=== PATIENT | male | born 1960 | race Caucasian/White ===

== ENCOUNTER 2017-07-12 21:00 | Outpatient (CLI) | payer OTHER | END 2017-07-13 07:14 | disposition home or self-care (01) | LOC: SLEEP 21:00 → EDBD 07-21 21:00 | PROVIDERS: ATTEND Nurse Practitioner Family | DX: G47.33 Obstructive sleep apnea (adult) (pediatric) (principal); G47.10 Hypersomnia, unspecified; G47.50 Parasomnia, unspecified; E66.9 Obesity, unspecified | CPT/HCPCS: 95811 ==

== ENCOUNTER 2017-10-27 09:44 | Emergency (ER) | payer OTHER ==
[~2017-10-27] VITALS: Ht 180.3 cm; Wt 113.4 kg
[2017-10-27] MEDS ORDERED: LORazepam INJ 2 MG/ML (ATIVAN) VIAL IVP ONE (10:15)
[2017-10-27] MEDS ORDERED: fentaNYL INJECTION 100 MCG/2 ML AMP IVP ONE (10:15)
--- NOTE | 2017-10-27 10:56 | Diagnostic Imaging Report ---
EXAMINATION: 3 views of the right shoulder. INDICATION: Injury. FINDINGS: There is no fracture, dislocation or radiopaque foreign body. The acromioclavicular joint demonstrates mild hypertrophy and very minimal inferior osteophytes. Subchondral sclerosis is seen. The glenohumeral joint appear unremarkable. IMPRESSION: Mild AC joint degenerative change. Dictated by: Dictated on workstation # [id number]
--- NOTE | 2017-10-27 12:33 | Diagnostic Imaging Report ---
EXAMINATION: 2 views of the skull. INDICATION: Screening for metallic foreign body in the orbits before MRI. FINDINGS: The orbits and the intracranial cavity demonstrate no radiopaque foreign body. IMPRESSION: No radiopaque foreign body in the orbits or intracranially. Dictated by: Dictated on workstation # [id number]
--- NOTE | 2017-10-27 13:10 | Diagnostic Imaging Report ---
PROCEDURE: MRI right joint upper extremity without contrast. TECHNIQUE: Multiplanar, multisequence MR imaging of the right shoulder was performed without contrast. COMPARISON: Right shoulder radiographs of 10/27/2017. INDICATION: Right shoulder pain after injury. FINDINGS: Rotator cuff: There is an acute full-thickness tear of the superior one-half of the subscapularis with a large amount of edema within the muscle belly and surrounding the torn fibers. The torn fibers are retracted to the mid humeral head. There is also a full-thickness tear of the anterior one-half of the supraspinatus with the torn fibers retracted to the mid humeral head as well. Posterior infraspinatus has tendinopathy but remains intact. The infraspinatus and teres minor are normal. Glenoid labrum: Heterogeneous signal within the anterior inferior labrum with potential radial type tear in the labrum at the chondral labral junction. Long head of biceps: Long head of biceps is normally positioned within the bicipital groove. The intracapsular segment is intact. Bones and cartilage: No fracture or bone contusion. No glenohumeral chondromalacia. The acromioclavicular joint is normal in alignment without significant degenerative change. Soft tissues: No glenohumeral joint effusion. No MRI findings to suggest adhesive capsulitis. Extensive edema and/or hemorrhage within the subacromial and subdeltoid space. There is also a large amount of edema in the subcoracoid space from the subscapularis tear. IMPRESSION: 1. Acute anterior rotator cuff tear with complete tears of the superior one-half of the subscapularis and anterior one-half of the supraspinatus. Torn fibers are retracted to the mid humeral head and there is a large amount of edema and/or hemorrhage in the subcoracoid and subacromial space from acute injury. 2. Possible nondisplaced tear of the anterior inferior labrum. This can be evaluated in the future with an MR arthrogram once the acute injury has resolved. 3. No fracture or bone contusion. Dictated by: Dictated on workstation # [id number]
[2017-10-27] MEDS ORDERED: HYDR-3812 PO (13:26)
--- NOTE | 2017-10-27 13:26 | ED Fall/Injury ---
General Chief Complaint: Upper Extremity Stated Complaint: SHOULDER PAIN Nursing Triage Note: ARRIVED VIA AMB TO ROOM 07. 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 HE THEN FELL OFF THE GATE LANDING ON HIS LEFT FOREARM AND HIP. COMPLAINS OF LEFT SHOULDER PAIN AND HIP PAIN. Source: patient Exam Limitations: no limitations History of Present Illness Time seen by provider: 10:10 Initial Comments This 57-year-old gentleman presents to emergency room with right upper extremity injury. 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 He jumped onto the fence approximately 5 foot up to evade the animals and fell off landing on his right shoulder and hip. He now has pain and significant range of motion deficit in the right shoulder. His right hip also hurts but he is able to bear weight on it and walk without much difficulty. He denies any other injury. He did not strike his head or neck. Allergies and Home Medications Allergies Coded Allergies: No Known Drug Allergies (Unverified , 10/27/17) Home Medications Hydrocodone/Acetaminophen 1 Each Tablet, 1 EACH PO Q4H PRN for PAIN, #20 Prescribed by: KEVEN CLARK on 10/27/17 1326 Constitutional: no symptoms reported, see HPI Eyes: No Symptoms Reported Ears, Nose, Mouth, Throat: no symptoms reported Respiratory: no symptoms reported Cardiovascular: no symptoms reported Gastrointestinal: no symptoms reported Genitourinary: no symptoms reported Musculoskeletal: see HPI Skin: no symptoms reported Psychiatric/Neurological: No Symptoms Reported Past Neujuti-Zashpx-Piupmr Hx Patient Social History Alcohol Use: Rarely Uses Recreational Drug Use: No Smoking Status: Never a Smoker Recent Foreign Travel: No Contact w/Someone Who Travel: No Recent Infectious Disease Expo: No Recent Hopitalizations: No Seasonal Allergies Seasonal Allergies: No Surgeries History of Surgeries: No Respiratory History of Respiratory Disorde: No Cardiovascular History of Cardiac Disorders: Yes Cardiac Disorders: High Cholesterol, Hypertension Neurological History of Neurological Disord: No Genitourinary History of Genitourinary Disor: No Gastrointestinal History of Gastrointestinal Di: No Musculoskeletal History of Musculoskeletal Dis: No Endocrine History of Endocrine Disorders: No HEENT History of HEENT Disorders: No Cancer History of Cancer: No Psychosocial History of Psychiatric Problem: No Integumentary History of Skin or Integumenta: No Physical Exam Vital Signs Vital Sign - Last 12Hours 10/27/17 09:50 Temp 98.0 Pulse 78 Resp 18 B/P (MAP) 139/113 (122) Pulse Ox 98 Capillary Refill : Less Than 3 Seconds General Appearance: WD/WN, mild distress HEENT: normal ENT inspection Neck: normal inspection Back: normal inspection, no vertebral tenderness Extremities: normal inspection, other (movement of the right forearm, wrist, and elbow induces pain in the shoulder. Range of motion is severely limited in the shoulder. He cannot adduct his shoulder more than about 15 actively. 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, no motor/sensory deficits, alert, normal mood/affect, oriented x 3 Skin: normal color, warm/dry [place] Coma Score Best Eye Response: (4) Open Spontaneously Best Verbal Response: (5) Oriented Best Motor Response: (6) Obeys Commands [place] Total: 15 Progress/Results/Core Measures Results/Orders My Orders Orders - KEVEN ABEBE MD Lorazepam Injection (Ativan Injection) (10/27/17 10:15) Fentanyl Injection (Sublimaze Injection (10/27/17 10:15) Shoulder, Right, 3 Views (10/27/17 10:23) Skull 1-3 Views (10/27/17 11:58) Mri Rt Upper Ext Joint W/O (10/27/17 11:54) Vital Signs/I&O Vital Sign - Last 12Hours 10/27/17 10/27/17 09:50 13:38 Temp 98.0 Pulse 78 78 Resp 18 18 B/P (MAP) 139/113 (122) Pulse Ox 98 98 Blood Pressure Mean: 122 Progress Note : Progress Note X-ray was unremarkable. Case was discussed with Dr. Antunez. Given the mechanism of injury and the exam findings, rotator cuff tears felt highly likely. We both agree it is reasonable to perform the MRI on an emergent basis due to high probability of tear. This will expedite his care. MRI was available and performed. Patient was found to have tears and multiple rotator cuff muscles. He was placed in a sling and referred to Dr. Antunez for outpatient follow-up. Departure Impression Impression: Primary Impression: Right rotator cuff tear Qualified Codes: M75.101 - Unspecified rotator cuff tear or rupture of right shoulder, not specified as traumatic Additional Impression: Fall with injury Qualified Codes: W19.XXXA - Unspecified fall, initial encounter Disposition: 01 HOME, SELF-CARE Condition: Stable Departure-Patient Inst. Decision time for Depature: 13:24 Referrals: NO,LOCAL PHYSICIAN (PCP) Primary Care Physician SEBASTIÁN ANTUNEZ DO Patient Instructions: ROTATOR CUFF TEAR Add. Discharge Instructions: Use the sling for comfort. You should gently work on range of motion to keep your shoulder from becoming stiff. You may use the right hand to assist with range of motion. You may use ibuprofen up to 600 mg every 6 hours as needed for pain. Add hydrocodone for pain not controlled by ibuprofen. Follow-up with Dr. Antunez or the orthopedist of your choice as soon as possible. Avoid heavy lifting or strenuous activity with the right arm until otherwise instructed. Return to care if you have worsening symptoms. Icing in 20 minute intervals may be helpful in reducing pain and swelling. All discharge instructions reviewed with patient and/or family. Voiced understanding. Scripts Hydrocodone/Acetaminophen (Hydrocodon -Acetaminophen 5-325) 1 Each Tablet 1 EACH PO Q4H Y for PAIN, #20 TAB Prov: KEVEN ABEBE MD 10/27/17 Copy Copies To 1: SEBASTIÁN ANTUNEZ JOSHUA T MD Oct 27, 2017 13:26
[2017-10-27 13:38] VITALS: BP 138/94
== END 2017-10-27 13:38 | disposition home or self-care (01) ==
LOC: EDUNIT# 09:44 → ER 09:47
DX: M75.101 Unspecified rotator cuff tear or rupture of right shoulder, not specified as traumatic (principal); E78.00 Pure hypercholesterolemia, unspecified; I10 Essential (primary) hypertension; W18.30XA Fall on same level, unspecified, initial encounter
CPT/HCPCS: 70250; 73030; 73221; 99282

== ENCOUNTER 2020-11-29 05:31 | Outpatient (RCR) | payer OTHER ==
[~2020-11-29] VITALS: Ht 177.8 cm; Wt 123.2 kg
[~2020-11-29 05:31] MED LIST: ACHD5005 PO; ASPI-1238 PO; CHOL100048 PO; FENO145T26 PO; GARL1TAB2 PO; ZINC30CA PO
== END 2020-11-29 09:31 | disposition home or self-care (01) ==
LOC: PREOP 05:31
PROVIDERS: ATTEND Surgery
DX: Z01.812 Encounter for preprocedural laboratory examination (principal); Z12.11 Encounter for screening for malignant neoplasm of colon; Z20.822 Contact with and (suspected) exposure to COVID-19
CPT/HCPCS: 87635

== ENCOUNTER 2020-12-03 08:36 | Day surgery (SDC) | payer OTHER ==
[~2020-12-03] VITALS: Ht 177.8 cm; Wt 123.2 kg
[2020-12-03] MEDS ORDERED: LACTATED RINGERS 1,000 ML IV ONE (08:39)
[2020-12-03] MEDS ORDERED: LACTATED RINGERS 1,000 ML IV STA ×2 (08:46→09:45)
[2020-12-03 08:55] VITALS: BP 157/90
[2020-12-03] MEDS ORDERED: PROPOFOL INJECTION 50 ML IV ONE (09:38)
[2020-12-03] MEDS ORDERED: MIDAZOLAM 2 MG/2 ML (VERSED) VIAL ONE (09:38)
--- NOTE | 2020-12-03 09:44 | Progress Note-Pre Operative ---
Pre-Operative Progress Note H&P Reviewed The H&P was reviewed, patient examined and no changes noted. Date Seen by Provider: Dec 03, 2020 Time Seen by Provider: 09:44 Date H&P Reviewed: Dec 03, 2020 Time H&P Reviewed: 09:44 Pre-Operative Diagnosis: screening colonoscopy MARY VALERIO DO Dec 03, 2020 09:44
[2020-12-03] MEDS ORDERED: KETAMINE/NaCl 50 MG/5 ML SYRINGE (ED ONLY) ONE (10:03)
--- NOTE | 2020-12-03 10:26 | Progress Note-Post Operative ---
Post-Operative Progess Note Surgeon (s)/Gender Studies Professor (s) Surgeon MARY VALERIO DO Gender Studies Professor: na Pre-Operative Diagnosis screening colonoscopy Post-Operative Diagnosis Diverticulosis Procedure & Operative Findings Date of Procedure 12/03/20 Procedure Performed/Findings colonoscopy Anesthesia Type per MEDICAL INSURANCE CODER Estimated Blood Loss Estimated blood loss (mL): none Specimens/Packing Specimens Removed none MARY VALERIO DO Dec 03, 2020 10:26
--- NOTE | 2020-12-03 10:27 | Discharge Inst-Simple/Standard ---
Discharge Inst-Standard Patient Instructions/Follow Up Plan of Care/Instructions/FU: Michelle 10 years unless family history then 5 years for repeat colonoscopy. Any issues before that be seen at that time. Activity as Tolerated: Yes Discharge Diet: Regular Diet (high fiber) MARY VALERIO DO Dec 03, 2020 10:27
[2020-12-03 10:31] VITALS: BP 106/82
[2020-12-03 10:35] VITALS: BP 116/90
[2020-12-03 11:05] VITALS: BP 133/73
[2020-12-03 11:30] VITALS: BP 133/73
--- NOTE | 2020-12-03 12:51 | Anesthesia-General Post-Op ---
MAC Patient Condition Mental Status/LOC: Same as Preop Cardiovascular: Satisfactory Nausea/Vomiting: Absent Respiratory: Satisfactory Pain: Controlled Complications: Absent Post Op Complications Complications None Follow Up Care/Instructions Patient Instructions None needed. Anesthesiology Discharge Order Discharge Order Patient is doing well, no complaints, stable vital signs, no apparent adverse anesthesia problems. No complications reported per nursing. BOYD SAUNDERS CRNA Dec 03, 2020 12:51
--- NOTE | 2020-12-03 15:12 | OPERATIVE REPORT ---
DATE OF SERVICE: 12/03/2020 PREOPERATIVE DIAGNOSIS: Screening colonoscopy. POSTOPERATIVE DIAGNOSIS: Diverticulosis. PROCEDURE PERFORMED: Colonoscopy. SURGEON: Mary Martinez DO. ANESTHESIA: Per DIRECTOR SPECIAL EDUCATION. ESTIMATED BLOOD LOSS: None. COMPLICATIONS: None. INDICATIONS FOR PROCEDURE: The patient is a 60-year-old male needing screening colonoscopy. He understands the risks and benefits of the procedure and wished to proceed with the procedure. Consent was signed in the chart. DESCRIPTION OF PROCEDURE: The patient was taken to the endoscopy suite and placed in a left lateral recumbent position. Timeout was performed. Digital rectal exam was performed. There were no palpable polyps, masses or ulcerations. Scope was inserted in the rectum and advanced all the way to cecum with minimal difficulty. Prep was adequate. Scope was then slowly retracted back. No polyps, masses or ulcerations in the cecum, ascending, transverse, descending and sigmoid colon. Through the sigmoid colon, minimal amount of diverticulosis was present. Scope was then slowly retracted back to the rectum, where it was also retroflexed noting no other pathology. Scope was returned to its normal position, slowly withdrawn until completely removed. The patient tolerated procedure well without any complications. He was taken to the recovery room in stable condition. RECOMMENDATIONS: The patient will have a repeat colonoscopy in 10 years unless family history of colon cancer, which would then be 5 years. Any issues before that be seen at that time. Job ID: [id number] DocumentID: [id number] Dictated Date: 12/03/2020 10:29:12 Customer Relations Representative Date: 12/03/2020 15:11:46 Dictated By: MARY MARTINEZ DO
== END 2020-12-03 11:20 | disposition home or self-care (01) ==
LOC: ENDO 08:36
PROVIDERS: ATTEND Surgery
DX: Z12.11 Encounter for screening for malignant neoplasm of colon (principal); K57.30 Diverticulosis of large intestine without perforation or abscess without bleeding; I10 Essential (primary) hypertension; G47.33 Obstructive sleep apnea (adult) (pediatric); K21.9 Gastro-esophageal reflux disease without esophagitis; E66.9 Obesity, unspecified; Z68.39 Body mass index [BMI] 39.0-39.9, adult; Z79.899 Other long term (current) drug therapy; Z79.02 Long term (current) use of antithrombotics/antiplatelets; J30.9 Allergic rhinitis, unspecified